=== PATIENT | female | born 1950 | race Caucasian/White ===

== ENCOUNTER 2017-08-25 13:33 | Emergency (ER) | payer MEDICARE ==
[~2017-08-25] VITALS: Ht 165.1 cm; Wt 96.0 kg
[~2017-08-25 13:33] MED LIST: ADDE20 PO; ASPI81CH6 CHEW; DULO1CAP3 PO; ESZO1TAB4 PO; HYDR25TA5 PO; LEVO112T2 PO; LORA-392 PO; LYRI100C PO; OMEP20TA93 PO
[2017-08-25 13:52] VITALS: BP 163/90; PULSE 85; RESP 16; TEMP 99.3; O2SAT 97
--- NOTE | 2017-08-25 14:16 | PD ---
HPI Chief Complaint: Fall Time Seen by Provider: 14:04 Travel History International Travel<30 days: No Contact w/Intl Traveler<30days: No Traveled to known affect area: No History of Present Illness HPI 67-year-old female complains of right elbow pain and left knee pain. Patient tripped and fell this afternoon. Patient denies loss of consciousness. Patient denies any headache or neck pain. Patient denies any chest pain or shortness of breath. She denies abdominal pain. Patient denies any back pain. Patient complained of sharp pain localized the posterior aspect the right elbow and left knee. Patient denies any pain radiation. Patient states that the pain is worse with movement. On a scale from 1-10 the pain is an 8. Patient has history of recurrent left knee pain from osteoarthritis. Patient being referred to specialist for follow-up of the left knee pain. PFSH Past Medical History Hx Anticoagulant Therapy: Yes (ASA 81) Social History Tobacco Use: No Allergies-Medications (Allergen,Severity, Reaction): Coded Allergies: sunflower seed (Verified Allergy, Severe, tongue swelling, 05/31/17) Reported Meds & Prescriptions Reported Meds & Active Scripts Active Tylenol-Codeine #3 (Acetaminophen-Codeine) 300-30 mg Tab 1 Tab PO Q6H PRN Aspirin Low Dose (Aspirin) 81 Mg Chew 81 Mg CHEW DAILY Lyrica (Pregabalin) 100 Mg Cap 100 Mg PO DAILY Reported Ativan (Lorazepam) 0.5 Mg Tab 0.5 Mg PO HS PRN Eszopiclone 3 Mg Tab 3 Mg PO HS PRN Duloxetine DR (Duloxetine HCl) 60 Mg Capdr 90 Mg PO DAILY Adderall (Amphetamine-Dextroamphetamine) 20 Mg Tab 20 Mg PO BID Avoid late evening doses. Space doses at least 4 to 6 hours if more than once/day dosing. Hydrochlorothiazide 25 Mg Tab 25 Mg PO DAILY Omeprazole 20 Mg Tab 20 Mg PO DAILY Levothyroxine (Levothyroxine Sodium) 112 Mcg Tab 112 Mcg PO DAILY Review of Systems General / Constitutional: No: Fever Eyes: No: Visual changes HENT: No: Headaches Cardiovascular: No: Chest Pain or Discomfort Respiratory: No: Shortness of Breath Gastrointestinal: No: Abdominal Pain Genitourinary: No: Dysuria Musculoskeletal: Positive: Pain Skin: No Rash Neurologic: No: Weakness Psychiatric: No: Depression Endocrine: No: Polydipsia Hematologic/Lymphatic: No: Easy Bruising Physical Exam Narrative GENERAL: Well-nourished, well-developed patient. SKIN: Focused skin assessment warm/dry. HEAD: Normocephalic. EYES: No scleral icterus. No injection or drainage. NECK: Supple, trachea midline. No JVD or lymphadenopathy. CARDIOVASCULAR: Regular rate and rhythm without murmurs, gallops, or rubs. RESPIRATORY: Breath sounds equal bilaterally. No accessory muscle use. GASTROINTESTINAL: Abdomen soft, non-tender, nondistended. MUSCULOSKELETAL: No cyanosis, or edema. BACK: Nontender without obvious deformity. No CVA tenderness. Patient has mild ecchymosis swelling tenderness posterior aspect the right elbow. Full range of motion right elbow joint. Patient had ecchymosis swelling tenderness prepatellar area left knee. Limited range of motion of the left knee secondary to pain. Knee joint stable. No effusion noted. Data Data Last Documented VS Orders Orders Elbow, Complete (4 Vws) (08/25/17 14:09) Knee, Complete (4vws) (08/25/17 14:09) Ketorolac Inj (Toradol Inj) (08/25/17 14:30) Splint Or Brace Apply/Monitor (08/25/17 16:08) Ed Discharge Order (08/25/17 16:10) [facility] Medical Decision Making Medical Screen Exam Complete: Yes Emergency Medical Condition: Yes Interpretation(s) Last Impressions Knee X-Ray 08/25/171408 Signed Impressions: Service Date/Time: Friday, August 25, 2017 14:47 - CONCLUSION: Degenerative changes, no fracture probable small joint effusion Luis Enrique White MD FACR Elbow X-Ray 08/25/173 Signed Impressions: Service Date/Time: Friday, August 25, 2017 14:51 - CONCLUSION: Unremarkable examination of the right elbow. Rayo Mosley MD Differential Diagnosis Differential diagnosis including sprain, contusion, fracture, dislocation. Narrative Course 67-year-old female with right elbow pain left knee pain. Status post fall. Brock wrap left knee. Diagnosis Primary Impression: Contusion of left knee Qualified Codes: S80.02XA - Contusion of left knee, initial encounter Additional Impression: Contusion of right elbow Qualified Codes: S50.01XA - Contusion of right elbow, initial encounter Patient Instructions: General Instructions Additional Instructions: Ice pack as needed. Take medication as needed for pain. Follow-up with an orthopedist. Med/Other Pt SpecificInfo: Prescription(s) given Scripts Acetaminophen-Codeine (Tylenol-Codeine #3) 300-30 mg Tab 1 TAB PO Q6H Y for PAIN, #12 TAB 0 Refills Prov: Carlito Arthur MD 08/25/17 Disposition: 01 DISCHARGE HOME Condition: Stable Carlito Arthur MD Aug 25, 2017 14:16
[2017-08-25] MEDS ORDERED: KETOROLAC TROMETHAMINE 60 MG/2 ML (IM) VIAL IM ONE (14:30)
--- NOTE | 2017-08-25 15:35 | RADRPT ---
EXAM DATE/TIME: 08/25/2017 14:47 [facility] COMPARISON: No previous studies available for comparison. INDICATIONS : Fall today. Pain lateral aspect. MEDICAL HISTORY : Hypertension. SURGICAL HISTORY : Hysterectomy. ENCOUNTER: Initial ACUITY: 1 day PAIN SCORE: 9/10 LOCATION: Left Knee FINDINGS: Minimal soft tissue swelling patella bursa. Loss of articular cartilage in the medial compartment. Mild degenerative change in patellofemoral compartment. No fracture CONCLUSION: Degenerative changes, no fracture probable small joint effusion Luis Enrique White MD FACR on August 25, 2017 at 15:33 Board Certified Radiologist. This report was verified electronically.
--- NOTE | 2017-08-25 15:41 | RADRPT ---
EXAM DATE/TIME: 08/25/2017 14:51 [facility] COMPARISON: No previous studies available for comparison. INDICATIONS : Fall today. Pain posteriolateral aspect. MEDICAL HISTORY : Hypertension. SURGICAL HISTORY : Hysterectomy. ENCOUNTER: Initial ACUITY: 1 day PAIN SCORE: 5/10 LOCATION: Right Elbow FINDINGS: Multiple view examination of the right elbow demonstrates no soft tissue swelling, joint effusion, or fracture. The osseous structures are in normal alignment. Bony mineralization is normal. CONCLUSION: Unremarkable examination of the right elbow. Rayo Mosley MD on August 25, 2017 at 15:34 Board Certified Radiologist. This report was verified electronically.
[2017-08-25] MEDS ORDERED: TYLETAB34 PO (16:09)
== END 2017-08-25 16:00 | disposition home or self-care (01) ==
LOC: NEPC 13:33
DX: S80.02XA Contusion of left knee, initial encounter (principal); S50.01XA Contusion of right elbow, initial encounter; W01.0XXA Fall on same level from slipping, tripping and stumbling without subsequent striking against object, initial encounter
CPT/HCPCS: 73080; 73564; 96372; 99284; J1885

== ENCOUNTER 2017-09-10 16:58 | Emergency (ER) | payer MEDICARE ==
[~2017-09-10] VITALS: Ht 165.1 cm; Wt 100.0 kg
[~2017-09-10 16:58] MED LIST changes: +TYLETAB34 PO
[2017-09-10 17:14] VITALS: BP 144/86; PULSE 90; RESP 17; TEMP 98.3; O2SAT 97
[2017-09-10] MEDS ORDERED: CEPH-460 PO (18:06)
[2017-09-10] MEDS ORDERED: BACT800T5 PO (18:06)
--- NOTE | 2017-09-10 18:14 | PD ---
HPI Chief Complaint: Eye Problems/Injury Time Seen by Provider: 18:04 Travel History International Travel<30 days: No Contact w/Intl Traveler<30days: No Traveled to known affect area: No History of Present Illness HPI 67-year-old female presents for evaluation of left upper eyelid swelling. It started at 2:30 AM, worse than at 10:30 AM which prompted evaluation. She denies any actual pain or itching but says that her periorbital region feels "heavy." Denies any pain with extraocular range of motion. Denies any blurred vision, fevers or chills. She has had some congestion. She does not recall any bug bites or puncture wounds but she does garden on a regular basis. She has no other complaints at this time. PFSH Past Medical History Hx Anticoagulant Therapy: Yes (ASA 81) Depression: Yes Diminished Hearing: No Hypertension: Yes Thyroid Disease: Yes (HYPO) Past Surgical History Genitourinary Surgery: Yes (BLADDER MESH) Hysterectomy: Yes (PARTIAL) Tonsillectomy: Yes Other Surgery: Yes (THYROIDECTOMY, LAP BAND, HERNIA) Social History Alcohol Use: Yes (WEEKLY) Tobacco Use: No Substance Use: No Allergies-Medications (Allergen,Severity, Reaction): Coded Allergies: sunflower seed (Verified Allergy, Severe, tongue swelling, 05/31/17) Reported Meds & Prescriptions Reported Meds & Active Scripts Active Keflex (Cephalexin) 500 Mg Cap 500 Mg PO Q8H Bactrim DS (Sulfamethoxazole-Trimethoprim) 800-160 Mg Tab 1 Tab PO BID Tylenol-Codeine #3 (Acetaminophen-Codeine) 300-30 mg Tab 1 Tab PO Q6H PRN Aspirin Low Dose (Aspirin) 81 Mg Chew 81 Mg CHEW DAILY Lyrica (Pregabalin) 100 Mg Cap 100 Mg PO DAILY Reported Ativan (Lorazepam) 0.5 Mg Tab 0.5 Mg PO HS PRN Eszopiclone 3 Mg Tab 3 Mg PO HS PRN Duloxetine DR (Duloxetine HCl) 60 Mg Capdr 90 Mg PO DAILY Adderall (Amphetamine-Dextroamphetamine) 20 Mg Tab 20 Mg PO BID Avoid late evening doses. Space doses at least 4 to 6 hours if more than once/day dosing. Hydrochlorothiazide 25 Mg Tab 25 Mg PO DAILY Omeprazole 20 Mg Tab 20 Mg PO DAILY Levothyroxine (Levothyroxine Sodium) 112 Mcg Tab 112 Mcg PO DAILY Review of Systems General / Constitutional: No: Fever, Chills Eyes: No: Blurred Vision, Redness, Foreign Body Sensation, Pain, Tearing HENT: Positive: Congestion Skin: Positive Other (Periorbital swelling, heaviness), No Itching Physical Exam Narrative GENERAL: Well-developed well-nourished female no acute distress SKIN: Warm and dry. There is edema localized to the left upper eyelid. Minimal tenderness to palpation. HEAD: Atraumatic. Normocephalic. EYES: Pupils equal and round reactive to light extraocular muscles are intact there is no proptosis or pain with extraocular range of motion. No scleral icterus. No injection or drainage. ENT: No nasal bleeding or discharge. Mucous membranes pink and moist. NECK: Trachea midline. No JVD. CARDIOVASCULAR: Regular rate and rhythm. No murmur appreciated. RESPIRATORY: No accessory muscle use. Clear to auscultation. Breath sounds equal bilaterally. Data Data Last Documented VS Vital Signs Date Time Temp Pulse Resp B/P (MAP) Pulse Ox O2 Delivery O2 Flow Rate FiO2 09/10/17 17:14 98.3 90 17 144/86 (105) 97 MDM Medical Decision Making Medical Screen Exam Complete: Yes Emergency Medical Condition: Yes Medical Record Reviewed: Yes Differential Diagnosis Localized allergic reaction versus periorbital cellulitis versus orbital cellulitis versus hordeolum versus chalazion Narrative Course 67-year-old female with 1 day history of left upper eyelid swelling. Physical examination reveals localized edema to the left upper eyelid, localized allergic reaction versus mild periorbital cellulitis. No evidence of orbital cellulitis. The patient will be discharged on Bactrim and Keflex. Diagnosis Primary Impression: Periorbital cellulitis of left eye Additional Instructions: Medication as prescribed. Warm compresses several times a day 15 minutes at a time. Return for new or worsening symptoms. Med/Other Pt SpecificInfo: Prescription(s) given Scripts Cephalexin (Keflex) 500 Mg Cap 500 MG PO Q8H for Infection, #30 CAP 0 Refills Prov: Anne-Marie Kasper MD 09/10/17 Sulfamethoxazole-Trimethoprim (Bactrim DS) 800-160 Mg Tab 1 TAB PO BID for Infection, #20 TAB 0 Refills Prov: Anne-Marie Kasper MD 09/10/17 Disposition: 01 DISCHARGE HOME Condition: Stable Rahat Francois September 10, 2017 18:13
[2017-09-10] MEDS ORDERED: MELO15TA20 PO (18:32)
[2017-09-10 18:34] VITALS: BP 142/86; PULSE 84; RESP 16; O2SAT 96
== END 2017-09-10 18:40 | disposition home or self-care (01) ==
LOC: NEPD 16:58
DX: H00.034 Abscess of left upper eyelid (principal); R09.81 Nasal congestion; F32.9 Major depressive disorder, single episode, unspecified; I10 Essential (primary) hypertension; E03.9 Hypothyroidism, unspecified; Z79.82 Long term (current) use of aspirin; Z79.899 Other long term (current) drug therapy
CPT/HCPCS: 99283